=== PATIENT | female | born 1980 | race Caucasian/White ===

== ENCOUNTER 2022-12-10 10:39 | Outpatient (CLI) | payer BC, SELFPAY ==
[2022-12-10 15:32] LABS: Albumin* 4.4 g/dL (3.3-5.0)
[2022-12-10 15:33] LABS: Chloride* 108 mmol/L (96-114); Potassium* 4.1 mmol/L (3.6-5.1); Sodium* 143 mmol/L (135-149)
[2022-12-10 15:35] LABS: Bilirubin Total* 0.7 mg/dL (0.1-1.5); Carbon Dioxide* 27 mmol/L (20-32); Cholesterol* 167 mg/dL (90-199); Creatinine* 0.8 mg/dL (0.5-1.5); Estimated Glomerular Filt Rate 94 ml/min
[2022-12-10 15:36] LABS: Alanine Aminotransferase* 19 U/L (4-35); Alkaline Phosphatase* 95 U/L (40-150); Aspartate Amino Transferase* 25 U/L (12-35); Blood Urea Nitrogen* 20 mg/dL (5-24); Glucose* 91 mg/dL (60-115); Total Protein* 7.3 g/dL (6.0-8.3); Triglycerides* 42 mg/dL (40-149)
[2022-12-10 15:37] LABS: Calcium* 9.6 mg/dL (8.4-10.6); HDL Cholesterol* 54 mg/dL (>=50); LDL Cholesterol Calculated 105 mg/dL (<100)
== END 2022-12-10 10:40 | disposition home or self-care (01) ==
PROVIDERS: PCP Physician Assistant Medical; Visit Provider Physician Assistant Medical
DX: Z01.419 Encounter for gynecological examination (general) (routine) without abnormal findings (principal); Z13.6 Encounter for screening for cardiovascular disorders; Z13.29 Encounter for screening for other suspected endocrine disorder
CPT/HCPCS: 80053; 80061; 84443

== ENCOUNTER 2023-03-01 10:31 | Outpatient (CLI) | payer BC, SELFPAY ==
--- NOTE | 2023-03-01 10:45 | CRLHL7_ITS ---
For Patients: As a result of the Cures Act, medical imaging exams and procedure reports are released immediately into your electronic medical record. You may view this report before your referring provider. If you have questions, please contact your health care provider. BILATERAL SCREENING MAMMOGRAM WITH COMPUTER-AIDED DETECTION AND TOMOSYNTHESIS TECHNIQUE: CC and MLO views were obtained. These mammographic images have been obtained using full-field digital technique. These mammographic images were interpreted with the benefit of computer-aided detection. Breast Tomosynthesis was used in this interpretation. COMPARISON FILM: 03/13/21, 11/19/16. FINDINGS: The breasts are heterogeneously dense, which may obscure small masses IMPRESSION: There is no radiographic evidence for malignancy. ASSESSMENT: BI-RADS Category 2: Benign RECOMMENDATION: Routine screening mammogram in 1 year. A lay language report of this examination will be provided to the patient. Sebas Wynn M.D. Diagnostic Radiologist [email or web address] Transcribed: 2:27 p.mJulian camp/Dictated by: Sebas Wynn MD @ 03/01/2023 12:36:00 PM (Electronically Signed)
== END 2023-03-01 10:32 | disposition home or self-care (01) ==
LOC: MAMMO 10:31
PROVIDERS: PCP Physician Assistant Medical; Visit Provider Physician Assistant Medical
DX: Z12.31 Encounter for screening mammogram for malignant neoplasm of breast (principal); R92.2 Inconclusive mammogram
CPT/HCPCS: 77063; 77067

== ENCOUNTER 2023-06-29 08:14 | Outpatient (CLI) | payer BC, SELFPAY ==
--- NOTE | 2023-06-29 08:15 | CRLHL7_ITS ---
For Patients: As a result of the Century Cures Act, medical imaging exams and procedure reports are released immediately into your electronic medical record. You may view this report before your referring provider. If you have questions, please contact your health care provider. Indication: MIGRAINE Technique: Noncontrast sagittal T1 weighted, axial FLAIR, axial T2 weighted, axial SWI, and axial diffusion weighted sequences are provided. Comparison: No prior studies available for comparison at this institution. Findings: The ventricles, sulci and gyri are normal size, shape and contour for age. Few punctate scattered foci of FLAIR signal hyperintensity in the cerebral white matter are nonspecific. The midline structures are centrally located with no evidence of shift. There are no suspicious intra or extra-axial fluid collections. No pathologic susceptibility artifacts. No region of restricted diffusion. Expected flow voids in the cavernous carotids and basilar artery. Impression: 1. No acute intracranial abnormality. 2. Scattered foci of FLAIR signal hyperintensity in the cerebral subcortical white matter are nonspecific. Differential considerations include sequela of migraine headaches, hypertension, diabetes, and collagen vascular disease. Dictated by Sebas Robles MD @ 06/29/2023 12:01:48 PM (Electronically Signed)
== END 2023-06-29 08:15 | disposition home or self-care (01) ==
LOC: MRI 08:14
PROVIDERS: PCP Physician Assistant Medical; Visit Provider Physician Assistant Medical
DX: G43.909 Migraine, unspecified, not intractable, without status migrainosus (principal)
CPT/HCPCS: 70551

== ENCOUNTER 2023-09-20 10:51 | Outpatient (CLI) | payer BC, SELFPAY ==
--- NOTE | 2023-09-20 11:00 | CRLHL7_ITS ---
For Patients: As a result of the Century Cures Act, medical imaging exams and procedure reports are released immediately into your electronic medical record. You may view this report before your referring provider. If you have questions, please contact your health care provider. Indication: Chronic sinusitis. Technique: Noncontrast axial CT of the paranasal sinuses with coronal reformats are provided. No comparisons. Findings: The visualized paranasal sinuses are clear. The ostiomeatal complexes are patent bilaterally. The visualized intraorbital contents appear within normal limits. Impression: Unremarkable CT of the paranasal sinuses. Please note that all CT scans at this facility use dose modulation, iterative reconstruction, and/or weight-based dosing when appropriate to reduce radiation dose to as low as reasonably achievable. Dictated by Jones Santiago MD @ 09/20/2023 11:19:32 AM (Electronically Signed)
== END 2023-09-20 10:52 | disposition home or self-care (01) ==
PROVIDERS: PCP Physician Assistant Medical; Referring Provider Otolaryngology; Visit Provider Family Medicine
DX: J32.9 Chronic sinusitis, unspecified (principal)
CPT/HCPCS: 70486

== ENCOUNTER 2023-11-03 13:45 | Outpatient (CLI) | payer BC, SELFPAY | END 2023-11-03 13:46 | disposition home or self-care (01) | PROVIDERS: PCP Physician Assistant Medical; Visit Provider Otolaryngology | DX: R42 Dizziness and giddiness (principal) | CPT/HCPCS: 84443; 86039; 86431; 86618 ==

== ENCOUNTER 2023-12-23 09:37 | Outpatient (CLI) | payer BC, SELFPAY | END 2023-12-23 09:38 | disposition home or self-care (01) | LOC: FRMREF 09:39 | PROVIDERS: PCP Physician Assistant Medical; Visit Provider Physician Assistant Medical | DX: Z01.84 Encounter for antibody response examination (principal) | CPT/HCPCS: 86039 ==

== ENCOUNTER 2023-12-30 13:00 | Outpatient (CLI) | payer BC, SELFPAY ==
--- NOTE | 2023-12-30 13:00 | CRLHL7_ITS ---
For Patients: As a result of the Century Cures Act, medical imaging exams and procedure reports are released immediately into your electronic medical record. You may view this report before your referring provider. If you have questions, please contact your health care provider. INDICATION: Anesthesia. TECHNIQUE: 3D [id number] magnetic resonance angiography of the head with 3D MIP reconstructions provided. Diffusion imaging was also obtained. COMPARISON: None. FINDINGS: No proximal large vessel occlusion. The anterior cerebral arteries are patent. Hypoplastic right A1 anterior cerebral artery. The middle cerebral arteries are patent. The posterior cerebral arteries are patent. The intradural vertebral arteries and basilar artery are patent. The intracranial internal carotid arteries are patent. No aneurysm or high flow vascular malformation. No acute ischemia on the diffusion sequence. IMPRESSION: IMPRESSION 1. Normal appearance of the intracranial arterial circulation, with no proximal large vessel occlusion, flow limiting stenosis or other vascular abnormality. Dictated by Vitaly Magana MD @ 12/30/2023 3:37:15 PM (Electronically Signed)
--- OUTSIDE RECORDS SUMMARY | 2023-12-30 13:02 | XMS_ITS | Referral Summary ---
Author Name Unknown Organization [place] Address [address] [place] [address] Care Team Providers Care Rehabilitation Physician Name Role Phone Maddi Lo PA-C Primary Care Provider [phone] Allergies Active Allergy Reactions Criticality Noted Date Comments Apple Juice Itching 11/06/2011 THROAT ITCHING Nuts Other (See Comments),Hives 11/06/2011 THROAT ITCHING Crustaceans Itching,Swelling 11/06/2011 Penicillins Rash Low 10/21/2011 Shellfish-Derived Products 11/24/2020 Throat Itching Medications Medication Sig Dispensed Refills Start Date End Date Status sertraline (ZOLOFT) 100 MG tablet Take 100 mg by mouth daily. 0 Active levonorgestrel (MIRENA) 20 MCG/24HR IUD 1 each by Intrauterine route once 0 Active doxycycline monohydrate (ADOXA) 50 MG tablet Take 100 mg by mouth 2 times daily 0 Active Active Problems Problem Noted Date Diagnosed Date Lumbar radiculopathy 12/12/2020 Social History Tobacco Use Types Packs/Day Years Used Date Smoking Tobacco: Former Cigarettes Q uit: 1997 Smokeless Tobacco: Never Adolescent Education Answer Date Record ed Getting School Help Needed Not on file 08/15 Sex and Gender Information Value Date Recorded Sex Assigned at Not on file Gender Identity Not on file Sexual Orientation Not on file Last Filed Vital Signs Vital Sign Reading Time Taken Comments Blood Pressure 111/76 01/13/2022 11:33 AM RN CARDIOVASCULAR ICU Pulse 66 01/13/2022 11:33 AM RN CARDIOVASCULAR ICU Temperature 36.8 ??C (98.3 ??F) 12/25/2020 2:19 PM CS T Respiratory Rate 16 01/13/2022 11:33 AM RN CARDIOVASCULAR ICU Oxygen Saturation 99% 01/13/2022 11:33 AM RN CARDIOVASCULAR ICU Inhaled Oxygen Concentration - - Weight 64.4 kg (142 lb) 01/13/2022 11:33 AM RN CARDIOVASCULAR ICU Height 172.7 cm (5' 8) 01/13/2022 11:33 AM RN CARDIOVASCULAR ICU Body Mass Index 21.59 01/13/2022 11:33 AM RN CARDIOVASCULAR ICU Plan of Treatment Not on file Care Teams Rehabilitation Physician Relationship Specialty Start Date End Date Maddi Lo PA-C [facility] [address] [address] PCP - General 12/12/20
--- OUTSIDE RECORDS SUMMARY | 2023-12-30 13:02 | XMS_ITS | Clinical Summary ---
Author Name Unknown Organization [place] Address [address] [place] [address] Care Team Providers Care Alloy Weigher Name Role Phone Maddi Lo PA-C Primary Care Provider [phone] Allergies Active Allergy Reactions Criticality Noted Date [...] Noted Date Diagnosed Date Lumbar radiculopathy 12/12/2020 Family History Medical History Relation Comments Diabetes No family hx of Hypertension No family hx of Social History Tobacco Use Types Packs/Day Years [...] Comments Blood Pressure 111/76 01/13/2022 11:33 AM TOOLMAKER HELPER Pulse 66 01/13/2022 11:33 AM TOOLMAKER HELPER Temperature 36.8 ??C (98.3 ??F) 12/25/2020 2:19 PM CS T Respiratory Rate 16 01/13/2022 11:33 AM TOOLMAKER HELPER Oxygen Saturation 99% 01/13/2022 11:33 AM TOOLMAKER HELPER Inhaled Oxygen Concentration - - Weight 64.4 kg (142 lb) 01/13/2022 11:33 AM TOOLMAKER HELPER Height 172.7 cm (5' 8) 01/13/2022 11:33 AM TOOLMAKER HELPER Body Mass Index 21.59 01/13/2022 11:33 AM TOOLMAKER HELPER Plan of Treatment Health Maintenance Due Date Last Done Comments ADVANCE CARE PLANNING 1979 ANNUAL REVIEW OF HM ORDERS 1979 GLUCOSE 1979 HEPATITIS B IMMUNIZATION (1 of 3 - 3-dose series) 1979 MAMMO SCREENING 1979 YEARLY PREVENTIVE VISIT 1979 HIV SCREENING 1994 HEPATITIS C SCREENING 1997 LIPID 2019 PAP 11/02/2019 11/02/2016, 11/02/2016 DTAP/TDAP/TD IMMUNIZATION (2 - Td or Tdap) 04/14/2022 04/14/2012 COVID-19 Vaccine (3 - 2022-2 4 season) 2023 03/18/2021, 02/25/2021 INFLUENZA VACCINE (#1) 2023 1, 10/06/2010 PHQ-2 (once per calendar year) 2023 HPV IMMUNIZATION Aged Out No longer e ligible based on patient's age to complete this topic IPV IMMUNIZATION Aged Out No longer e ligible based on patient's age to complete this topic MENINGITIS IMMUNIZATION Aged Out No l onger eligible based on patient's age to complete this topic Pneumococcal Vaccine: Pediatrics (0 to 5 Years) and At-Risk Patients (6 to 64 Years) Aged Out No longer eligible b ased on patient's age to complete this topic RSV MONOCLONAL ANTIBODY Aged Out No l onger eligible based on patient's age to complete this topic Care Teams Alloy Weigher Relationship Specialty Start Date End Date Maddi Lo PA-C [address] [place] [address] PCP - General 12/12/20
--- OUTSIDE RECORDS SUMMARY | 2023-12-30 13:02 | XMS_ITS | Clinical Summary ---
Author Name Unknown Organization [facility] Address [place], [place] [address] Care Team Providers Care Lawyer Criminal Name Role Phone Pcp, No Primary Care Provider Unavailabl e Allergies Active Allergy Reactions Criticality Noted Date Comments Apple Itching 11/06/2011 THROAT ITCHING Penicillins 08/25/2010 Tree Nut Hives,Other - Descri be In Comment Field 11/06/2011 THROAT ITCHING Medications Medication Sig Dispensed Refills Start Date End Date Status escitalopram (LEXAPRO) 20 mg tablet Take 1 tablet by mouth once daily. Way overdue for follow up visit. Will need doctor visit before refill. 14 tablet 0 10/02/2010 Active azithromycin (ZITHROMAX Z-ASTON) 250 mg tabletIndications:Acu te sinusitis, unspecified Take by mouth. Take 500 mg (2 tabs) by mouth on day 1, then 250 mg (1 tab) daily for days 2-5. 6 tablet 0 11/19/2010 Active Active Problems No known active problems Social History Tobacco Use Types Packs/Day Years Used Date Smoking Tobacco: Never Assessed Sex and Gender Information Value Date Recorded Sex Assigned at Not on file Gender Identity Not on file Sexual Orientation Not on file Obstetrics History Last Filed Vital Signs Vital Sign Reading Time Taken Comments Blood Pressure 102/62 11/19/2010 11:30 AM SUPPORT SERVICES MANAGER Pulse - - Temperature 36.8 ??C (98.3 ??F) 11/19/2010 11:[address] Respiratory Rate - - Oxygen Saturation - - Inhaled Oxygen Concentration - - Weight 68.5 kg (151 lb) 11/19/2010 11:30 AM SUPPORT SERVICES MANAGER Height - - Body Mass Index - - Plan of Treatment Health Maintenance Due Date Last Done Comments Tdap 1990 Depression screening for age 12+ 1991 HIV for age 15-65 1994 BMI (ht and wt on same day) for age 18+ 1997 Hepatitis C screening for age 18-79 1997 Tetanus booster 1999 COVID-19 vaccine series (2022- season) 2023 03/18/2021, 02/25/2021 Influenza for age 9-49 07/23/2023 Pap test for age 21-65 12/10/2025 , 12/10/2022, 11/02/2016, Additional history exists Pneumococcal series for age 6-64 Aged Out No longer eligible based on patient's age to complete this topic Care Teams Lawyer Criminal Relationship Specialty Start Date End Date Pcp, No . PCP - General 02/10/11
--- OUTSIDE RECORDS SUMMARY | 2023-12-30 13:02 | XMS_ITS | Clinical Summary ---
Author Name [facility] Address [address] [place] [address] Care Team Providers Care Access Manager Name Role Phone Unavailable Primary Care Provider Unavailabl e Source Comments You are receiving this document as you are listed as the primary care provider,follow-up provider, or the patient has been referred to you for consultation.This is in compliance with the Medicare andMedicaid EHR Incentive Program,which states Providers who transition their patient to another setting of careor provider of care or refers their patient to another provider of care shouldprovide summary care record for each transition of care or referral. [facility] Allergies Active Allergy Reactions Criticality Noted Date Comments Penicillins Unknown 11/28/2018 Medications Medication Sig Dispensed Refills Start Date End Date Status sertraline (ZOLOFT) 100 MG tablet Take 100 mg by mouth daily. 0 Active levonorgestrel (MIRENA) 20 MCG/24HR IUD 1 Each by Intrauterine route once. 0 Active ibuprofen (MOTRIN) 200 MG tablet Take 200-400 mg by mouth every 6 hours as needed for Pain. 0 Active Active Problems Problem Noted Date Diagnosed Date Herniated nucleus pulposus, L5-S1, right 019 Overview: Added automatically from request for surgery [id number] Social History Tobacco Use Types Packs/Day Years Used Date Smoking Tobacco: Former Smokeless Tobacco: Never Sex and Gender Information Value Date Recorded Sex Assigned at Not on file Gender Identity Not on file Sexual Orientation Not on file Last Filed Vital Signs Vital Sign Reading Time Taken Comments Blood Pressure 103/69 12/26/2018 8:26 AM ELECTROMECHANICAL INSPECTOR Pulse 72 12/26/2018 8:26 AM ELECTROMECHANICAL INSPECTOR Temperature - - Respiratory Rate 18 12/26/2018 8:26 AM ELECTROMECHANICAL INSPECTOR Oxygen Saturation - - Inhaled Oxygen Concentration - - Weight 74.4 kg (164 lb) 11/28/2018 3:12 PM ELECTROMECHANICAL INSPECTOR Height 172.7 cm (5' 8) 11/28/2018 3:12 PM ELECTROMECHANICAL INSPECTOR Body Mass Index 24.94 11/28/2018 3:12 PM ELECTROMECHANICAL INSPECTOR Plan of Treatment Health Maintenance Due Date Last Done Comments Cervical Cancer Screening Due 1979 Hep C Screening (Preventive Services) 1979 HepB (1) 1979 HIV Screening (Preventive Services) 1995 Adult Preventive Visit 1997 DTaP/Tdap/Td (2 - Tdap) 04/14/2022 04/14/2012 COVID-19 Vaccine (3 - season) 2023 03/18/2021, 02/25/2021 Influenza (#1) 2023 09/29/2011, 06/2011, 10/06/2010, Additional history exists Zoster/Shingles (1 of 2) 2029 HPV Vaccine Aged Out No longer eligi ble based on patient's age to complete this topic HepA Aged Out No longer eligi ble based on patient's age to complete this topic Hib Aged Out No longer eligi ble based on patient's age to complete this topic IPV (Polio) Aged Out No longer eligi ble based on patient's age to complete this topic MCV4 Aged Out No longer eligi ble based on patient's age to complete this topic Pneumococcal Aged Out No longer eligi ble based on patient's age to complete this topic
--- NOTE | 2023-12-30 13:45 | CRLHL7_ITS ---
For Patients: As a result of the Century Cures Act, medical imaging exams and procedure reports are released immediately into your electronic medical record. You may view this report before your referring provider. If you have questions, please contact your health care provider. INDICATION: Skin anesthesia. TECHNIQUE: 3D time-of flight and gadolinium bolus magnetic resonance angiography of the neck with 3D MIP reconstructions provided. All measurements are based on NASCET criteria. 20 cc of Dotarem. COMPARISON : None. FINDINGS: There is a 3 vessel configuration of the aortic arch. The brachiocephalic artery is patent. The proximal subclavian arteries are patent. The common carotid arteries are patent. The internal carotid arteries are patent. The cervical vertebral arteries are patent. The right cervical vertebral artery is hypoplastic. No abnormal dilatation of the major cervical arteries. IMPRESSION: IMPRESSION1. Normal appearance of the cervical arterial circulation, with no stenosis, occlusion or evidence of dissection. Dictated by Vitaly Magana MD @ 12/30/2023 3:49:09 PM (Electronically Signed)
== END 2023-12-30 13:01 | disposition home or self-care (01) ==
LOC: MRI 13:01
PROVIDERS: PCP Physician Assistant Medical; Visit Provider Family Medicine
DX: R20.0 Anesthesia of skin (principal)
CPT/HCPCS: 70544; 70549; A9575

== ENCOUNTER 2025-03-20 16:40 | Outpatient (CLI) | payer BC, SELFPAY ==
--- NOTE | 2025-03-20 16:40 | CRLHL7_ITS ---
For Patients: As a result of the Century Cures Act, medical imaging exams and procedure reports are released immediately into your electronic medical record. You may view this report before your referring provider. If you have questions, please contact your health care provider. INDICATION: BILATERAL SCREENING MAMMOGRAM, ASYMPTOMATIC 44 F COMPARISON: 03/01/23, 03/13/21, 11/19/16 TECHNIQUE: CC and MLO views were obtained. These mammographic images have been obtained using full-field digital technique. These mammographic images were interpreted with the benefit of computer aided detection and tomosynthesis. BREAST COMPOSITION: The breasts are heterogeneously dense, which may obscure small masses. FINDINGS: No suspicious findings. ASSESSMENT: BI-RADS 2 Benign RECOMMENDATION: Annual screening mammogram. A lay language report of this examination will be provided to the patient. Dictated by: Sebas Wynn MD @ 03/28/2025 12:30:22 (Electronically Signed)
== END 2025-03-20 16:41 | disposition home or self-care (01) ==
LOC: MAMMO 16:40
PROVIDERS: PCP Physician Assistant Medical; Visit Provider Physician Assistant Medical
DX: Z12.31 Encounter for screening mammogram for malignant neoplasm of breast (principal); R92.333 Mammographic heterogeneous density, bilateral breasts
CPT/HCPCS: 77063; 77067

== ENCOUNTER 2025-08-07 08:28 | Outpatient (CLI) | payer BC, SELFPAY | END 2025-08-07 08:29 | disposition home or self-care (01) | PROVIDERS: PCP Physician Assistant Medical; Visit Provider Family Medicine | DX: R20.0 Anesthesia of skin (principal) | CPT/HCPCS: 80053; 82550; 84443; 86038; 86140; 86431; 86618 ==

== ENCOUNTER 2025-08-28 06:23 | Outpatient (CLI) | payer BC, SELFPAY ==
--- NOTE | 2025-08-28 07:55 | P.ANES_ITS ---
Anesthesia Charges Start Date/Time Anesthesia Start Date: 08/28/25 Anesthesia Start Time: 07:28 Stop Date/Time Anesthesia Stop Date: 08/28/25 Anesthesia Stop Time: 07:55 Coding CPT Codes CPT Codes: GINA LWR INTST SCR COLSC - 65402 ([id number]) P2 - PATIENT W/MILD SYST DISEASE, QK - CARDIOLOGY PHYSICIAN 2-4 CNCRNT ANES PROC, QX - ENVIRONMENTAL MARKETER SVC W/ MD MED DIRECTION
--- NOTE | 2025-08-28 07:55 | W.ANESCHARGE ---
Anesthesia Charges Start Date/Time Anesthesia Start Date: 08/28/25 Anesthesia Start Time: 07:28 Stop Date/Time Anesthesia Stop Date: 08/28/25 Anesthesia Stop Time: 07:55 Coding CPT Codes CPT Codes: GINA LWR INTST SCR COLSC - 09060 ([id number]) P2 - PATIENT W/MILD SYST DISEASE, QK - SNOW REMOVAL SUPERVISOR 2-4 CNCRNT ANES PROC, QX - CHANGE MANAGEMENT FACILITATOR SVC W/ MD MED DIRECTION
--- NOTE | 2025-08-28 08:09 | P.ANES_ITS ---
Anesthesia Charges Start Date/Time Anesthesia Start Date: 08/28/25 Anesthesia Start Time: 07:28 Stop Date/Time Anesthesia Stop Date: 08/28/25 Anesthesia Stop Time: 07:55 Coding CPT Codes CPT Codes: GINA LWR INTST SCR COLSC - 80126 ([id number]) QK - CORE LAYING MACHINE OPERATOR 2-4 CNCRNT GINA PROC, QX - QUALITY CONTROL EXPERT SVC W/ MD MED DIRECTION, P2 - PATIENT W/MILD SYST DISEASE
--- NOTE | 2025-08-28 08:09 | W.ANESCHARGE ---
Anesthesia Charges Start Date/Time Anesthesia Start Date: 08/28/25 Anesthesia Start Time: 07:28 Stop Date/Time Anesthesia Stop Date: 08/28/25 Anesthesia Stop Time: 07:55 Coding CPT Codes CPT Codes: GINA LWR INTST SCR COLSC - 10503 ([id number]) QK - STATION BAGGAGE PORTER 2-4 CNCRNT GINA PROC, QX - CASING RUNNING MACHINE TENDER SVC W/ MD MED DIRECTION, P2 - PATIENT W/MILD SYST DISEASE
== END 2025-08-28 06:24 | disposition home or self-care (01) ==
LOC: OP CLINIC 06:24
PROVIDERS: PCP Family Medicine; Visit Provider Surgery
DX: Z12.11 Encounter for screening for malignant neoplasm of colon (principal); K63.89 Other specified diseases of intestine
CPT/HCPCS: 00812; 45378; J2704

== ENCOUNTER 2025-10-19 09:39 | Day surgery (SDC) | payer BC, SELFPAY ==
[2025-10-19] VITALS (13 sets, daily range): BP systolic 102–133; BP diastolic 71–92; PULSE 65–88; RESP 16; TEMP 36.5–37.1; O2SAT 98–100; BMI 23.4
[2025-10-19] MEDS: SODIUM CHLORIDE 0.9 % (FLUSH) 10 ML SYRINGE IVF (10:02)
[2025-10-19] MEDS: LACTATED RINGERS 1000 ML 1,000 ML 100 ML IV (10:02)
[2025-10-19 10:06] LABS: Ur HCG Qualitative* Negative (Negative)
[2025-10-19] MEDS: OXYMETAZOLINE 0.05% NASAL SPRAY 2 SPRAY NOSTRIL-B (10:25)
--- NOTE | 2025-10-19 10:54 | P.ANES_ITS ---
Anesthesia Charges Start Date/Time Anesthesia Start Date: 10/19/25 Anesthesia Start Time: 10:35 Stop Date/Time Anesthesia Stop Date: 10/19/25 Anesthesia Stop Time: 11:25 Coding CPT Codes CPT Codes: ANESTH NOSE/SINUS SURGERY - 64580 ([id number]) P1 - NORMAL HEALTHY PATIENT, QK - NATIONAL ACCOUNT DIRECTOR 2-4 CNCRNT ANES PROC, QX - EDITOR CONTINUITY AND SCRIPT SVSandra W/ MED DIRECTION
--- NOTE | 2025-10-19 10:54 | W.ANESCHARGE ---
Anesthesia Charges Start Date/Time Anesthesia Start Date: 10/19/25 Anesthesia Start Time: 10:35 Stop Date/Time Anesthesia Stop Date: 10/19/25 Anesthesia Stop Time: 11:25 Coding CPT Codes CPT Codes: ANESTH NOSE/SINUS SURGERY - 74711 ([id number]) P1 - NORMAL HEALTHY PATIENT, QK - BARKING MACHINE FEEDER 2-4 CNCRNT ANES PROC, QX - WIRE SPIRAL BINDER SVSandra W/ MED DIRECTION
[2025-10-19] MEDS: AYR SALINE NASAL GEL 1 APPLIC NOSTRIL-B (10:59)
[2025-10-19] MEDS: BUPIVACAINE 0.5%/EPINEPHRINE 0.9 MG (30.9 ML) INJECTION (11:00)
[2025-10-19] MEDS: MUPIROCIN 1 GM PACKET 1 APPLIC TOPICAL (11:07)
--- NOTE | 2025-10-19 11:14 | P.ENTPROC_ITS ---
Procedure Note Date of procedure: 10/19/25 Procedure: Preop diagnosis deviated septum nasal obstruction nasal headache left middle turbinate romulo bullosa bilateral inferior turbinate hypertrophy Postop same Procedure nasal septoplasty, submucous partial resection inferior turbinates bilateral, endoscopic partial resection left middle turbinate romulo bullosa Under general trach anesthesia patient was prepped and draped usual fashion the nose decongested injected. A right hemitransfixion incision was made left anterior posterior tunnels were developed. A vertical incision was made the cartilage and a right posterior tunnel created. The deflected posterior portions of septal bone resected a large piece trimmed returned to intraseptal space. Anteriorly there was a right premaxillary wing deformity that was simply infractured without resection. The hemitransfixion was then closed with 2 4-0 chromic sutures. A stab incision was made in the anterior of the left inferior turbinate a tunnel created with a Rajesh dissector. A conservative anterior submucous resection was performed. The Coblation was used for hemostasis and to cauterize intramurally along the inferior 10%. This was repeated on the right side in identical fashion. Remainder procedure was done with the available assistance of a 0 degree endoscope. The left middle turbinate romulo was incised along its mid lateral aspect and the romulo bone infractured and then the turbinate crushed with the Maxbass forceps eliminating the hollow portion. Silastic stents were secured any side the septum with 3-0 nylon. Merocel packing coated in Bactroban was placed in the middle meatus on each side. The patient procedure well was taken recovery in satisfactory condition. Blood loss was less than 10 mL. Surgeon: Roe Oneil MD
--- NOTE | 2025-10-19 11:28 | P.ANES_ITS ---
Anesthesia Charges Start Date/Time Anesthesia Start Date: 10/19/25 Anesthesia Start Time: 10:35 Stop Date/Time Anesthesia Stop Date: 10/19/25 Anesthesia Stop Time: 11:25 Coding CPT Codes CPT Codes: ANESTH NOSE/SINUS SURGERY - 76113 ([id number]) P1 - NORMAL HEALTHY PATIENT, QK - SECURITY ALARM TECHNICIAN 2-4 CNCRNT ANES PROC, QX - FISH RECEIVER SVSandra W/ MED DIRECTION
--- NOTE | 2025-10-19 11:28 | W.ANESCHARGE ---
Anesthesia Charges Start Date/Time Anesthesia Start Date: 10/19/25 Anesthesia Start Time: 10:35 Stop Date/Time Anesthesia Stop Date: 10/19/25 Anesthesia Stop Time: 11:25 Coding CPT Codes CPT Codes: ANESTH NOSE/SINUS SURGERY - 91712 ([id number]) P1 - NORMAL HEALTHY PATIENT, QK - CANOPY STRINGER 2-4 CNCRNT ANES PROC, QX - LABORATORY EQUIPMENT CLEANER SVSandra W/ MED DIRECTION
[2025-10-19] MEDS: IBUPROFEN 200 MG TABLET PO (12:45)
[2025-10-19] MEDS: ACETAMINOPHEN 325 MG TABLET PO (12:45)
== END 2025-10-19 13:20 | disposition home or self-care (01) ==
LOC: OR 09:41
PROVIDERS: Anesthesiology; PCP Family Medicine; Visit Provider Otolaryngology
PROC: (CPT 31231; principal; 2025-10-19 11:30)
DX: J34.2 Deviated nasal septum (principal); J34.3 Hypertrophy of nasal turbinates; R51.9 Headache, unspecified; J34.89 Other specified disorders of nose and nasal sinuses
CPT/HCPCS: 30520; 30140; 31240; 00160; 81025; A9270; J0330; J1100; J2250; J2405; J2704; J3010; J7120